=== PATIENT | female | born 1995 | race Caucasian/White ===

== ENCOUNTER 2017-02-02 05:31 | Inpatient (IN) | payer OTHER ==
[2017-02-01 14:59] VITALS: BMI 61.0
[2017-02-02] MEDS ORDERED: ROCURONIUM BROMIDE 50 MG/5 ML VIAL ONE (09:52)
[2017-02-02] MEDS ORDERED: ACETAMINOPHEN INJECTION 100 ML IVPB ONE (09:59)
--- NOTE | 2017-02-02 10:27 | HP ---
Admitting History and Physical - Admission Chief Complaint: Morbid obesity History of Present Illness: 22 yo F presents for laparoscopic vertical sleeve gastrectomy with Dr. Park History Source: Patient Limitations to Obtaining History: No Limitations - Past Medical History DRAWER IN: No: Migraine, Seizure, Syncope Cardiovascular: No: CAD, CHF, HTN, Hyperlipdemia Pulmonary: No: Asthma, COPD, Pneumonia Gastrointestinal: No: Constipation, Inflamatory Bowel Disease, Irritable Bowel Disease Renal/: No: Renal Failure, UTI Reproductive: Yes: Polycystic Ovary Syndrome ...LMP: 01/14/17 Heme/Onc: No: Anemia, Bleeding Disorder Endocrine: No: Diabetes Mellitus, Hyperthyroidism, Hypothyroidism - Past Surgical History Past Surgical History: No: None - Smoking History Smoking history: Never smoked Have you smoked in the past 12 months: No - Alcohol/Substance Use Hx Alcohol Use: No (very rarely) Home Medications - Allergies Allergies/Adverse Reactions: Allergies Allergy/AdvReac Type Severity Reaction Status Date / Time amoxicillin Allergy Intermediate Rash Verified 02/02/17 10:04 Penicillins Allergy Intermediate Rash Verified 02/02/17 10:04 - Home Medications Home Medications: Ambulatory Orders Ethinyl Estradiol/Drospirenone [Drospirenone-Ee 3-0.02 mg Tab] 1 each PO DAILY 02/01/17 Famotidine [Pepcid] 20 mg PO BID #60 tablet 02/02/17 Oxycodone HCl/Acetaminophen [Percocet 5-325 mg Tablet] 1 - 2 tab PO Q6H #28 tab MDD 4 02/02/17 Review of Systems - Review of Systems Constitutional: reports: No Symptoms. denies: Chills, Fever Eyes: denies: No Symptoms HENT: denies: No Symptoms, Nasal Congestion, Throat Pain Cardiovascular: denies: No Symptoms, Chest Pain, Palpitations Respiratory: denies: No Symptoms, Cough, SOB Gastrointestinal: denies: No Symptoms, Abdominal Pain, Constipation, Diarrhea Genitourinary: denies: No Symptoms, Dysuria Musculoskeletal: denies: No Symptoms Endocrine: denies: No Symptoms Hematology/Lymphatic: denies: No Symptoms, Easily Bruised, Excessive Bleeding Physical Examination Vital Signs: Vital Signs Temperature 98.5 F 02/02/17 10:02 Pulse Rate 76 02/02/17 10:02 Respiratory Rate 20 02/02/17 10:02 Blood Pressure 101/43 02/02/17 10:02 O2 Sat by Pulse Oximetry (%) 97 02/02/17 10:02 Constitutional: Yes: Well Nourished, No Distress Eyes: Yes: WNL Neck: Yes: WNL Cardiovascular: Yes: WNL, Regular Rate and Rhythm Respiratory: Yes: WNL, Regular, CTA Bilaterally Gastrointestinal: Yes: WNL Musculoskeletal: Yes: WNL Extremities: Yes: WNL Integumentary: Yes: WNL Neurological: Yes: WNL, Alert, Oriented Problem List - Problems (1) Morbid obesity Code(s): E66.01 - MORBID (SEVERE) OBESITY DUE TO EXCESS CALORIES Assessment/Plan 22 yo F presents for planned laparoscopic vertical sleeve gastrectomy with Dr. Park
[2017-02-02] MEDS ORDERED: SCOPOLAMINE HYDROBROMIDE 1 PATCH PATCH.TD72 ONE (10:34)
[2017-02-02] MEDS ORDERED: MIDAZOLAM HCL 2 MG/2 ML SINGLE DOSE VIAL ONE ×2 (10:34→12:52)
[2017-02-02] MEDS ORDERED: PROPOFOL 20 ML ONE (10:52)
[2017-02-02] MEDS ORDERED: CLINDAMYCIN PHOSPHATE 900 MG/6 ML VIAL IVPB ONE (11:04)
[2017-02-02] MEDS ORDERED: NEOSTIGMINE METHYLSULFATE 0.5 MG/ML - 10 ML MDV ONE (11:52)
[2017-02-02] MEDS ORDERED: ONDANSETRON 4 MG/2 ML VIAL ONE (11:52)
[2017-02-02] MEDS ORDERED: GLYCOPYRROLATE 0.2 MG/1 ML VIAL ONE (11:52)
[2017-02-02] MEDS ORDERED: LABETALOL HCL 5 MG/1 ML (100MG/20 ML VIAL) ONE (11:55)
[2017-02-02] MEDS ORDERED: HYDROmorphone HCL/PF 1 MG/ML VIAL (FOR PYXIS CHARGING ONLY) ONE (12:09)
[2017-02-02] MEDS ORDERED: LIDOCAINE HCL 2% JELLY (5 ML/TUBE) ONE (12:46)
[2017-02-02] MEDS ORDERED: BUPIVACAINE HCL/PF 0.5% (5MG/ML) 10 ML VIAL IJ ONE (12:52)
[2017-02-02] MEDS ORDERED: SUCCINYLCHOLINE CHLORIDE 200 MG/10 ML VIAL ONE (13:09)
--- NOTE | 2017-02-02 13:28 | OP ---
Operative Note - Note: Operative Date: 02/02/17 Pre-Operative Diagnosis: Morbid Obesity Operation: Laparoscopic vertical sleeve gastrectomy Post-Operative Diagnosis: Same as Pre-op Surgeon: Cameron Park Sheet Metal Welder: Jyothi Virk Anesthesiologist/EDITING [employer]: Abdirahman Kenyon Anesthesia: General Specimens Removed: Greater curvature of the stomach Estimated Blood Loss (mls): 50 Drains & Tubes with Location: Robles catheter Fluid Volume Replaced (mls): 1,600 Operative Report Dictated: Yes
--- NOTE | 2017-02-02 13:32 | SURG ---
Surgery Qa Analyst Note Qa Analyst: Jyothi Virk PA-C Date of Service: 02/02/17 Diagnosis: Morbid Obesity Procedure: Laparoscopic vertical sleeve gastrectomy I was present for the entirety of the operative procedure. For further detail, please refer to operative report. Visit type - Case Type Case Type: Scheduled Admission
[2017-02-02] MEDS ORDERED: HYDROmorphone *PCA* 10MG/50ML DISP.SYRIN PCA ONE (13:37)
[2017-02-02] MEDS ORDERED: HYDROmorphone *PCA* 10MG/50ML DISP.SYRIN PCA SCH (13:45)
[2017-02-02] MEDS ORDERED: LACTATED RINGERS SOLUTION 1,000 ML IV SCH (13:45)
[2017-02-02] MEDS ORDERED: ONDANSETRON 4 MG/2 ML VIAL IVPB SCH (13:45)
[2017-02-02] MEDS ORDERED: PROMETHAZINE HCL 25 MG/1 ML VIAL IVPB PRN (13:45)
[2017-02-02] MEDS ORDERED: PROMETHAZINE HCL 25 MG/1 ML VIAL IVPUSH PRN (13:45)
[2017-02-02] MEDS ORDERED: ONDANSETRON 4 MG/2 ML VIAL IVPUSH PRN ×2 (13:45)
[2017-02-02 14:19] LABS: MCH 28.7 pg (25.7-33.7); MCHC 33.3 g/dl (32.0-36.0); MEAN CELL VOLUME 86.2 fl (80-96); MEAN PLT VOLUME 8.6 fl (7.5-11.1); PLATELET COUNT 231 K/MM3 (134-434); RDW 12.8 % (11.6-15.6); WHITE BLOOD COUNT 12.4 K/mm3 (4.0-10.0)
[2017-02-02 14:41] LABS: ALBUMIN 3.5 g/dl (3.4-5.0); ANION GAP 11 (8-16); BILIRUBIN,TOTAL 0.6 mg/dL (0.2-1.0); CALCIUM 8.5 mg/dL (8.5-10.1); CO2 23 mmol/L (21-32); CREATININE 0.6 mg/dL (0.55-1.02); GLUCOSE,RANDOM 144 mg/dL (74-106); SGOT/AST 103 U/L (15-37); SGPT/ALT 158 U/L (12-78); TOT PROT 6.8 g/dl (6.4-8.2)
[2017-02-02 14:42] LABS: ALK PHOS 52 U/L (45-117)
[2017-02-02] MEDS: SODIUM CHLORIDE 1,000 ML IV SCH ×3 (15:00→23:45)
[2017-02-02] MEDS: METOCLOPRAMIDE HCL INJECTION 10 MG/2 ML VIAL IVPB SCH ×2 (17:36→19:59)
[2017-02-02] MEDS: ACETAMINOPHEN 1000 MG/100 ML VIAL (NON FORMULARY) IVPB SCH ×3 (17:36→19:03)
[2017-02-02] MEDS: ENOXAPARIN NA (PORCINE) 40 MG/0.4 ML DISP.SYRIN SQ SCH (21:47)
[2017-02-02] MEDS: FAMOTIDINE 20 MG/50 ML IVPB 50 ML IVPB SCH (21:53)
[2017-02-03] MEDS: HYDROmorphone HCL CARPU-JECT 1 MG/1 ML DISP.SYRIN IVPB PRN ×6 (00:37→23:40)
[2017-02-03] MEDS: METOCLOPRAMIDE HCL INJECTION 10 MG/2 ML VIAL IVPB SCH ×4 (01:19→20:13)
[2017-02-03] MEDS: ACETAMINOPHEN 1000 MG/100 ML VIAL (NON FORMULARY) IVPB SCH ×2 (02:01→12:48)
[2017-02-03 07:29] LABS: MCHC 34.2 g/dl (32.0-36.0); MEAN CELL VOLUME 84.8 fl (80-96); PLATELET COUNT 208 K/MM3 (134-434); RDW 12.8 % (11.6-15.6); WHITE BLOOD COUNT 9.4 K/mm3 (4.0-10.0)
[2017-02-03 08:11] LABS: ALBUMIN 3.2 g/dl (3.4-5.0); ANION GAP 11 (8-16); CALCIUM 8.5 mg/dL (8.5-10.1); CO2 24 mmol/L (21-32); GLUCOSE,RANDOM 85 mg/dL (74-106)
[2017-02-03 08:15] LABS: ALK PHOS 48 U/L (45-117); BILIRUBIN,TOTAL 0.4 mg/dL (0.2-1.0); CREATININE 0.4 mg/dL (0.55-1.02); SGOT/AST 90 U/L (15-37); SGPT/ALT 160 U/L (12-78); TOT PROT 6.2 g/dl (6.4-8.2)
[2017-02-03] MEDS: SODIUM CHLORIDE 1,000 ML IV SCH (08:17)
[2017-02-03] MEDS ORDERED: ACETAMINOPHEN 1000 MG/100 ML VIAL (NON FORMULARY) IVPB SCH (08:45)
--- NOTE | 2017-02-03 08:56 | PN ---
Progress Note (short form) - Note Progress Note: ANESTHESIOLOGY POST-OP CHECK 22F s/p laparoscopic sleeve gastrectomy under general anesthesia, POD #1. No acute complaints. Pain 3-4/10, denies N/V. Robles in place, OOB to chair. Vital Signs Temperature 98.2 F 02/03/17 08:07 Pulse Rate 72 02/03/17 08:07 Respiratory Rate 20 02/03/17 08:07 Blood Pressure 143/71 02/03/17 08:07 O2 Sat by Pulse Oximetry (%) 99 02/02/17 23:00 Active Medications Acetaminophen (Ofirmev Injection -) 1,000 mg IVPB Q6H MICHELLE Stop: 02/04/17 02:46 Diphenhydramine HCl (Benadryl Injection -) 12.5 mg IVPUSH ONCE PRN PRN Reason: FOR ITCHING Enoxaparin Sodium (Lovenox -) 40 mg SQ BID [facility] Last Admin: 02/02/17 21:47 Dose: 40 mg Fentanyl (Sublimaze Injection -) 50 mcg IVPUSH [id number] PRN PRN Reason: PAIN Stop: 02/05/17 13:46 Last Admin: 02/02/17 14:25 Dose: 50 mcg Hydromorphone HCl (Dilaudid Injection -) 1 mg IVPB Q3H PRN PRN Reason: PAIN Last Admin: 02/03/17 00:37 Dose: 1 mg Hydromorphone HCl (Dilaudid Tube Winder Hand -) 0 mg RESEARCH PHLEBOTOMIST RESEARCH PHLEBOTOMIST MICHELLE PRN Reason: Protocol Stop: 02/09/17 13:45 Last Admin: 02/03/17 01:39 Dose: 0.2 mg Famotidine/Sodium Chloride (Pepcid 20 Mg Premixed Ivpb -) 50 mls @ 100 mls/hr IVPB BID MICHELLE Last Admin: 02/02/17 21:53 Dose: 100 mls/hr Sodium Chloride (Normal Saline -) 1,000 mls @ 150 mls/hr IV ASDIR MICHELLE Last Admin: 02/03/17 08:17 Dose: 150 mls/hr Lactated Ringer's (Lactated Ringers Solution) 1,000 mls @ 125 mls/hr IV ASDIR MICHELLE Last Admin: 02/02/17 17:36 Dose: Not Given Metoclopramide HCl (Reglan Injection -) 10 mg IVPB Q6H MICHELLE Last Admin: 02/03/17 08:17 Dose: 10 mg Promethazine HCl (Phenergan Injection -) 12.5 mg IVPB Q6H PRN PRN Reason: NAUSEA AND/OR VOMITING Gen: Awake, alert No apparent anesthesia complications. RESEARCH PHLEBOTOMIST D/C'd by surgeon. Continue management as per primary team.
[2017-02-03] MEDS ORDERED: oxyCODONE HCL 5 MG TABLET PO PRN (11:04)
[2017-02-03] MEDS ORDERED: ACETAMINOPHEN 325 MG TABLET (FP) PO PRN (11:04)
[2017-02-03] MEDS ORDERED: SODIUM CHLORIDE 1,000 ML IV SCH (11:15)
--- NOTE | 2017-02-03 11:16 | SPEC ---
DATE OF OPERATION: 02/02/2017 SURGEON: Susie Park MD GAMING HOST: CROW Araiza PREOPERATIVE DIAGNOSIS: Morbid obesity. POSTOPERATIVE DIAGNOSIS: Morbid obesity. PROCEDURE: Laparoscopic vertical sleeve gastrectomy. ESTIMATED BLOOD LOSS: 50 ml. DRAINS: None. ANESTHESIA: GET. SPECIMEN: Greater curvature of the stomach. REASON FOR PROCEDURE: This is a 22-year-old female who presented to the office for evaluation of weight loss options. RISKS AND BENEFITS: After discussing different options, she decided to proceed with a laparoscopic possible open vertical sleeve gastrectomy. The patient was seen by the respective subspecialties and cleared for surgery. The risks and benefits of the procedure were explained. These included bleeding, infection, hernia, NJ, DVT, PE, injury to surrounding structures including the liver, colon, bowel, spleen, esophagus, vessel injury, nerve injury, weight regain, gastric leak, staple line leak, sleeve leak, obstruction, vitamin deficiency, hair loss, and as some of the possible complications. The patient understood and signed informed consent. DESCRIPTION OF PROCEDURE: The patient was placed supine on the operating room table. The patient underwent general endotracheal intubation. A Robles catheter was inserted. The arms were brought out at 90 degrees and secured. A foot board was placed, and the legs were secured laterally with padding. The abdomen was prepped and draped in the usual sterile fashion. A timeout was performed. An incision was made in the left upper quadrant, and a Veress needle inserted. Pneumoperitoneum was established. Subsequently, the Veress needle was removed, and a 12-mm trocar was placed. The laparoscopic camera was inserted, and inspection of the abdominal cavity was performed. An incision was made in the supraumbilical region, and a 15-mm trocar placed under direct visualization. A 5-mm trocar was then placed in the right upper quadrant, and a 5-mm trocar placed below the left subcostal margin. A stab wound was made in the subxiphoid area, and a Justine clamp inserted and removed to dilate the tract. A Ishaan liver retractor was inserted. The post was secured at the bedside by the nursing staff. The patient was placed in steep reverse Trendelenburg position. The Ishaan liver retractor was used to secure the liver toward the anterior abdominal wall. The pylorus was identified and 6 cm proximal to it, the lesser sac was entered using the LigaSure device. All lateral attachments to the greater curvature of the stomach including the short gastric vessels were ligated using the LigaSure device toward the gastrosplenic and gastrophrenic ligaments. Once this was done in its entirety, it was confirmed that all tubes within the nasal or oropharyngeal cavity including a temperature probe was removed by Anesthesia. The bougie was then inserted by Anesthesia. Transection of the stomach was then begun staying adjacent to the bougie but away from the angularis. Transection of the stomach was performed near the portion of the stomach where the lesser sac was entered. Two laparoscopic Endo- ARIANA black loads were used at this location. Laparoscopic Endo-ARIANA purple loads were then used for the remainder of the transection until the greater curvature of the stomach was fully transected. This was done staying close to the bougie. Care was taken to stay away from the angle of His cephalad. The staple line was then inspected. Hemostasis was identified. A leak test was then performed. The stomach was clamped distally to the staple line. Irrigation solution was placed in the left upper quadrant, and air insufflated by Anesthesia into the sleeve. No leaks were identified, and no obstruction was identified. This was done throughout the entirety of the staple line. At this point, the irrigation solution was suctioned, and again hemostasis noted. The 15-mm supraumbilical trocar was then removed, and the specimen removed from the site using a sponge stick ford. The specimen was inspected, and a Veress needle inserted. The specimen insufflated adequately, and no leak was identified. The staple line was noted to be intact. A Inderjit-Fili device was then used to temporarily close the fascia with a 0 Vicryl suture at this site. The 15-mm trocar was then reinserted, and the 12-mm trocar in the left upper quadrant removed. The fascia at this site was then closed using a Inderjit-Fili device with a 0 Vicryl suture. Again, hemostasis was noted. The Ishaan liver retractor was then removed under direct visualization. Pneumoperitoneum was desufflated, and the fascial sutures were secured. Hemostasis was noted at all incision sites, and Marcaine was injected at all incision sites. All incision sites were closed using 4-0 Biosyn. Sterile dressings were applied. The patient tolerated the procedure well, and was transferred to the recovery room in stable condition with the Robles catheter intact. The patient was transferred to telemetry for further monitoring. A Surgicel dressing was placed at the left lateral aspect of the liver to aid with an area which required further hemostasis. Hemostasis was noted at the end of the case. SUSIE PARK M.D. CAROLE/[id number] MTDD
[2017-02-03] MEDS: FAMOTIDINE 20 MG/50 ML IVPB 50 ML IVPB SCH ×2 (12:14→21:41)
[2017-02-03] MEDS: ENOXAPARIN NA (PORCINE) 40 MG/0.4 ML DISP.SYRIN SQ SCH ×2 (12:17→21:41)
--- NOTE | 2017-02-03 14:47 | PN ---
Progress Note (short form) - Note Progress Note: POD 1 Laparoscopic vertical sleeve gastrectomy Pain controlled No nausea/vomiting Vital Signs Period Temp Pulse Resp BP Sys/Dunn Pulse Ox Last 24 Hr 97.9 F-99 F 66-96 18-20 140-167/71-93 97-100 Abd soft, dressings intact CBC, BMP 02/03/17 05:45 02/03/17 05:45 UGI- no leak/obstruction OOB D/C mancera Clears Discharge planning in am
--- NOTE | 2017-02-03 14:54 | DS ---
Physical Examination Vital Signs: Vital Signs Temperature 97.9 F 02/03/17 14:14 Pulse Rate 70 02/03/17 14:14 Respiratory Rate 20 02/03/17 14:14 Blood Pressure 162/93 02/03/17 14:14 O2 Sat by Pulse Oximetry (%) 99 02/02/17 23:00 Constitutional: Yes: Calm Neck: Yes: Supple Cardiovascular: Yes: WNL Respiratory: Yes: Regular Gastrointestinal: Yes: Soft Wound/Incision: Yes: Clean/Dry Neurological: Yes: Alert, Oriented Labs: CBC, BMP 02/03/17 05:45 02/03/17 05:45 Discharge Summary Reason For Visit: MORBID (SEVERE) OBESITY DUE TO EXCESS CALORIES Current Active Problems Morbid obesity (Acute) Procedures: Principal: Laparoscopic vertical sleeve gastrectomy Condition: Stable - Instructions Diet, Activity, Other Instructions: [facility] Cameron Park M.D. [address] [place] [address], [address] [facility] [address] [facility] [place] [address] Robotic, Bariatric and General Surgery Postoperative Instructions for Bariatric Surgery Activity: Resume normal everyday activity as tolerated. You may walk and climb stairs without any limitation. We encourage you to walk as often as you can Do not lift anything more than 10 pounds for 8 weeks. At that time, you can return to full activity, including the gym, without limitation. Do not drive a motor vehicle while taking prescribes narcotic pain medication. Wound Care: If you have a bandage in place, leave it on for 3 days. At that time you may remove the outer bandage. If there are strips of tape on the skin after removing the outer bandage, leave them in place. They will fall off by themselves. Do not remove them. If there is clear glue on the skin after removing the outer bandage, leave it in place. Do not pick at it or peel it off. You may shower after taking the outer bandage off, 3 days after your surgery. If incisions become red, warm or open, please call the office. Diet: Continue a sugar-free, non-carbonated Clear liquid diet three times a day for the first week-Stage I diet. In addition, you should drink 8 ounces of water every hour. When drinking, sips should be slow and steady, not large and quick. After the first week, call the office to be advanced to the next dietary stage. Do not advance stages until instructed. Your diet will be advanced over the phone each week. Medications/Pain Management: You may resume previous medications unless told otherwise. The pills may be swallowed whole or broken if scored. You may take the prescribed narcotic pain medication as needed. If the narcotic medication is not needed for pain control, you may take Tylenol. Avoid all other pain medications including Advil, Ibuprofen, Motrin, Aspirin, Naprosyn, Aleve, Celebrex. You will receive Pepcid. Please take this twice a day as prescribed. Dizziness,Headaches/Gas Pain: Make sure you are getting enough fluids daily. Patients on diuretics or water pills may need medication adjusted. Some fluids such as broth or Gatorade may help. Gas pains are common in the first few weeks after surgery. At times they can be worse than surgical pain. Walking can help. You can also use Mylanta, Maalox, or Gas-X. Vomiting/Nausea: This may occur if you eat too fast, don't chew, or eat too much. Go back to fluids. If the vomiting or nausea persists, call the office. Constipation/Diarrhea: You may experience a change in bowel habits. Many things affect this, including a decrease in food intake, not enough fluid and taking pain medication. Some people experience diarrhea after the barium swallow in x-ray. If either persist, call the office. Follow up: Call the office at [phone] for an appointment 2 weeks after your surgical procedure. Disposition: HOME - Home Medications Comprehensive Discharge Medication List: Ambulatory Orders Ethinyl Estradiol/Drospirenone [Drospirenone-Ee 3-0.02 mg Tab] 1 each PO DAILY 02/01/17 Famotidine [Pepcid] 20 mg PO BID #60 tablet 02/02/17 Oxycodone HCl/Acetaminophen [Percocet 5-325 mg Tablet] 1 - 2 tab PO Q6H #28 tab MDD 4 02/02/17
--- NOTE | 2017-02-03 16:21 | PATH ---
Surgical Pathology Report Patient Name: EDER CAREY [facility]. Rec. #: [id number] /Age/Gender: 1995 (Age: 22) / F Account: [id number] Location: 4 W TELEMETRY U Taken: 02/02/2017 Received: 02/02/2017 Reported: 02/03/2017 Physicians: Cameorn Park M.D. Specimen(s) Received GREATER CURVATURE OF STOMACH Clinical History Morbid obesity due to excessive caloric intake Final Diagnosis STOMACH, GREATER CURVATURE, SLEEVE GASTRECTOMY: PORTION OF STOMACH WITH FOCAL MILD CHRONIC GASTRITIS. IMMUNOSTAIN FOR H. PYLORI IS NEGATIVE. Electronically Signed Prashanth Hoover M.D. Gross Description Received in formalin, labeled "greater curvature of stomach," is a 155 gram, 23.0 x 5.5 x 4.5 cm. portion of stomach with a stapled margin of resection. The serosa is guerra-tran with minimal attached fat. The mucosa is guerra-red with focally flattened folds. No mucosal masses are identified. Spring Tier sections are submitted in one cassette. /02/02/2017 [facility]02/02/2017
[2017-02-04] MEDS: METOCLOPRAMIDE HCL INJECTION 10 MG/2 ML VIAL IVPB SCH ×2 (01:45→09:20)
[2017-02-04] MEDS ORDERED: ONDANSETRON 4 MG/2 ML VIAL ONE (03:17)
[2017-02-04] MEDS ORDERED: ONDANSETRON 4 MG/2 ML VIAL IVPB PRN ×2 (03:18→03:25)
[2017-02-04] MEDS ORDERED: ONDANSETRON 4 MG/2 ML VIAL IVPB SCH (03:25)
[2017-02-04] MEDS: HYDROmorphone HCL CARPU-JECT 1 MG/1 ML DISP.SYRIN IVPB PRN (05:39)
[2017-02-04] MEDS: ONDANSETRON 4 MG/2 ML VIAL IVPB SCH ×2 (06:31→09:20)
[2017-02-04 07:58] VITALS: BP 148/98; PULSE 79; TEMP 97.8
[2017-02-04] MEDS: FAMOTIDINE 20 MG/50 ML IVPB 50 ML IVPB SCH (09:19)
[2017-02-04] MEDS: ENOXAPARIN NA (PORCINE) 40 MG/0.4 ML DISP.SYRIN SQ SCH (09:20)
== END 2017-02-04 11:15 | disposition home or self-care (01) | DRG 403 ==
LOC: JSAMEDAYSX 05:31 → J4W 15:50
PROVIDERS: ADMIT Surgery; ATTEND Surgery
PROC: 0DB64Z3 Excision of Stomach, Percutaneous Endoscopic Approach, Vertical (ICD-10-PCS; principal; 2017-02-02 10:30)
DX: E66.01 Morbid (severe) obesity due to excess calories (principal); Z68.44 Body mass index [BMI] 60.0-69.9, adult; E28.2 Polycystic ovarian syndrome
CPT/HCPCS: 36415; 74241-TC; 80053; 84703; 85027; 86850; 86900; 86901; 88305-TC; 94010; 94760